=== PATIENT | male | born 1960 | race Caucasian/White ===

== ENCOUNTER → 2017-03-06 | Outpatient (CLI) | payer MEDICARE, MEDICAID | END | disposition home or self-care (01) | LOC: RADPV 09:41 | PROVIDERS: ATTEND Family Medicine | DX: M85.88 Other specified disorders of bone density and structure, other site (principal) | CPT/HCPCS: 77080 ==

== ENCOUNTER 2025-07-21 12:02 | Inpatient (IN) | payer MEDICARE, OTHER ==
[~2025-07-21] VITALS: Ht 170.2 cm; Wt 69.4 kg
[2025-07-21] MEDS: LevETIRAcetam 2,000 MG in DEXTROSE 5%-WATER 100 ML IV ONE (12:15)
[2025-07-21] MEDS: ACETAMINOPHEN 1000 MG/ISO-OSM 100 ML IV ONE (12:20)
[2025-07-21] MEDS: CefTRIAXone 1 GM/DEXTROSE 50 ML IV ONE (12:21)
[2025-07-21 12:29] LABS: PLATELET COUNT (AUTO) 232 K/uL (150-450); RED BLOOD CELL COUNT(AUTO) 4.16 MIL/uL (4.50-5.90); RED CELL DISTRIBUTION WIDTH 13.3 % (11.5-14.5); WHITE BLOOD COUNT (AUTO) 7.5 K/uL (4.5-11.0)
[2025-07-21 12:42] LABS: CALCIUM, TOTAL 8.8 mg/dL (8.8-10.5); CREATININE 0.42 mg/dL (0.60-1.30); GLOMERULAR FILTR. RATE CALC > 60 mL/min (>60); GLUCOSE,RANDOM 97 mg/dL (70-110); SODIUM SERUM 132 mmol/L (136-145); UREA NITROGEN, BLOOD 14 mg/dL (7-18)
[2025-07-21 12:43] LABS: ASPARTATE AMINOTRANSFERASE 80 U/L (15-37); TOTAL PROTEIN, SERUM 7.8 g/dL (6.4-8.2)
[2025-07-21 12:45] LABS: LACTIC ACID 1.7 mmol/L (0.4-2.0)
[2025-07-21] MEDS: SODIUM CHLORIDE 0.9% 2,150 ML IV ONE (12:47)
[2025-07-21 12:51] LABS: TROPONIN I-HIGH SENSITIVITY 4 ng/L (<76)
[2025-07-21 12:57] LABS: ABG BASE EXCESS 5.6 mmol/L (-2.0-3.0); ABG CARBOXYHEMOGLOBIN 1.1 % (0.5-1.5); ABG HCO3 28.9 mmol/L (21.0-28.0); ABG METHEMOGLOBIN 0.9 % (0.0-1.5); ABG OXYGEN CONTENT 17.3 mL/dL (15.0-23.0); ABG OXYGEN SATURATION 94.3 % (94.0-98.0); ABG OXYHEMOGLOBIN 92.4 % (94.0-98.0); ABG PCO2 47 mmHg (32.0-48.0); ABG PH 7.427 (7.350-7.450); ABG TOTAL HEMOGLOBIN 13.3 G/dL (13.5-17.5); FRACTIONATED INSPIRED OXYGEN 40.0 % (21-100.0); PO2, ARTERIAL BG 74.9 mmHg (83.0-108.0); SOURCE, BLOOD GAS ARTERIAL; TEMPERATURE, FAHRENHEIT, BG 101.7 FAHREN (96.0-98.6)
[2025-07-21 12:57] LABS: COVID AG,FIA SOURCE NASAL SWAB
[2025-07-21 12:58] LABS: ABG A-A DIFF O2 154.9 mmHg (10-20.0); ALLEN TEST, BLOOD GAS Positive; FLOW, BLOOD GAS 5.00 L/min (0.00-15.00); O2 DEVICE,BLOOD GAS CANNULA (ROOM AIR); PATIENT RATE, BG 16.0 min.; SITE, BLOOD GAS LFT RADIAL
[2025-07-21 13:33] LABS: SARS-COV2 (COVID) ANTIGEN,FIA Negative (Negative)
[2025-07-21 13:34] LABS: INFLUENZA TYPE A NEGATIVE FOR TYPE A (NEGATIVE)
[2025-07-21 13:36] LABS: INFLUENZA TYPE B POSITIVE FOR TYPE B (NEGATIVE)
[2025-07-21 14:14] LABS: APPEARANCE,URINE CLEAR (CLEAR); GLUCOSE, URINE (UA) NEGATIVE (NEGATIVE); LEUKOCYTE ESTERASE ,URINE SMALL (NEGATIVE); NITRATE,URINE POSITIVE (NEGATIVE); OCCULT BLOOD,URINE NEGATIVE (NEGATIVE); SPECIFIC GRAVITIY, URINE 1.010 (1.003-1.030)
[2025-07-21 14:37] LABS: SQUAMOUS EPITHELIAL CELL,UR Few /LPF (None Seen)
[2025-07-21] MEDS ORDERED: ALBUTEROL SULFATE 2.5 MG/0.5 ML NEB SOLUTION NEB PRN (15:00)
[2025-07-21] MEDS ORDERED: ONDANSETRON HCL 4 MG/2 ML VIAL IVP PRN (15:00)
[2025-07-21] MEDS ORDERED: IPRATROPIUM BROMIDE 0.5 MG/2.5 ML NEB SOLUTION NEB PRN (15:00)
[2025-07-21] MEDS: HEPARIN SODIUM,PORCINE 5,000 UNITS/ML VIAL SQ SCH (15:38)
[2025-07-21] MEDS: PIPERACILLIN/TAZO 3.375 GM/D5W 50 ML IV ONE (15:39)
[2025-07-21] MEDS: LACOSAMIDE 200 MG in DEXTROSE 5%-WATER 100 ML IV ONE (15:39)
[2025-07-21] MEDS: VANCOMYCIN 1.25 GM/WATER(PEG) 250 ML IV ONE (16:39)
[2025-07-21] MEDS: LORazepam 2 MG/ML VIAL IVP ONE (17:46)
[2025-07-21 18:59] VITALS: BP 143/104; PULSE 111; RESP 18; TEMP 100.2; O2SAT 97
[2025-07-21 20:25] VITALS: BP 157/99; PULSE 104; RESP 16; TEMP 99.7; O2SAT 98
[2025-07-21] MEDS: DOCUSATE SODIUM 100 MG CAPSULE PO SCH (21:00)
[2025-07-21] MEDS: DIAZEPAM 5 MG/ML 2 ML SYRINGE IVP ONE (22:17)
[2025-07-21] MEDS ORDERED: IOHEXOL 350 MG/ML 100 ML VIAL ONE (22:24)
[2025-07-21] MEDS: OSELTAMIVIR PHOSPHATE 75 MG CAPSULE PO SCH (22:45)
[2025-07-21] MEDS ORDERED: SODIUM CHLORIDE 0.9% 500 ML IV ONE (23:53)
[2025-07-21] MEDS: LevETIRAcetam 1,500 MG in DEXTROSE 5%-WATER 100 ML IV SCH (23:56)
[2025-07-22] VITALS (7 sets, daily range): BP systolic 131–161; BP diastolic 70–133; PULSE 83–108; RESP 18–20; TEMP 98.2–99.3; O2SAT 97–98
[2025-07-22] MEDS: PIPERACILLIN/TAZO 3.375 GM/D5W 50 ML IV SCH (00:27)
[2025-07-22] MEDS: RINGERS SOLUTION,LACTATED 1,000 ML IV SCH (01:09)
[2025-07-22] MEDS: BISACODYL 10 MG RECTAL RECTAL SUPPOSITORY PR ONE (01:09)
[2025-07-22 06:07] LABS: PLATELET COUNT (AUTO) 221 K/uL (150-450); RED BLOOD CELL COUNT(AUTO) 4.00 MIL/uL (4.50-5.90); RED CELL DISTRIBUTION WIDTH 13.3 % (11.5-14.5); WHITE BLOOD COUNT (AUTO) 6.4 K/uL (4.5-11.0)
[2025-07-22 06:19] LABS: CALCIUM, TOTAL 8.6 mg/dL (8.8-10.5); CREATININE 0.39 mg/dL (0.60-1.30); GLOMERULAR FILTR. RATE CALC > 60 mL/min (>60); GLUCOSE,RANDOM 99 mg/dL (70-110); SODIUM SERUM 133 mmol/L (136-145); UREA NITROGEN, BLOOD 9 mg/dL (7-18)
[2025-07-22] MEDS: LEVOTHYROXINE SODIUM 50 MCG TABLET GT SCH (06:23)
[2025-07-22] MEDS: VANCOMYCIN 1GM/WATER(PEG/NADA) 200 ML IV SCH (09:17)
[2025-07-22] MEDS: LACOSAMIDE 100 MG TABLET PO SCH (09:40)
[2025-07-22] MEDS: PANTOPRAZOLE SODIUM 40 MG/VIAL IVP SCH (09:40)
[2025-07-23] VITALS (7 sets, daily range): BP systolic 100–152; BP diastolic 54–107; PULSE 70–106; RESP 15–19; TEMP 98.1–99.3; O2SAT 94–98
[2025-07-23] MEDS: 0.9% SODIUM CHLORIDE 10 ML SYRINGE IVP PRN (00:09)
[2025-07-23 07:15] LABS: CALCIUM, TOTAL 8.4 mg/dL (8.8-10.5); CREATININE 0.49 mg/dL (0.60-1.30); GLOMERULAR FILTR. RATE CALC > 60 mL/min (>60); GLUCOSE,RANDOM 80 mg/dL (70-110); SODIUM SERUM 135 mmol/L (136-145); UREA NITROGEN, BLOOD 11 mg/dL (7-18)
[2025-07-23 08:18] LABS: PLATELET COUNT (AUTO) 216 K/uL (150-450); RED BLOOD CELL COUNT(AUTO) 3.72 MIL/uL (4.50-5.90); RED CELL DISTRIBUTION WIDTH 13.3 % (11.5-14.5); WHITE BLOOD COUNT (AUTO) 6.2 K/uL (4.5-11.0)
[2025-07-23] MEDS: POTASSIUM CHLORIDE 10% 40 MEQ/30 ML LIQUID UDCUP GT ONE (08:58)
[2025-07-24 03:24] VITALS: BP 147/81; PULSE 106; RESP 15; TEMP 98.4; O2SAT 97
[2025-07-24 06:35] LABS: PLATELET COUNT (AUTO) 233 K/uL (150-450); RED BLOOD CELL COUNT(AUTO) 3.89 MIL/uL (4.50-5.90); RED CELL DISTRIBUTION WIDTH 13.2 % (11.5-14.5); WHITE BLOOD COUNT (AUTO) 6.3 K/uL (4.5-11.0)
[2025-07-24 06:41] LABS: CALCIUM, TOTAL 8.5 mg/dL (8.8-10.5); CREATININE 0.53 mg/dL (0.60-1.30); GLOMERULAR FILTR. RATE CALC > 60 mL/min (>60); GLUCOSE,RANDOM 62 mg/dL (70-110); SODIUM SERUM 133 mmol/L (136-145); UREA NITROGEN, BLOOD 9 mg/dL (7-18)
[2025-07-24 08:12] VITALS: BP 139/85; PULSE 76; RESP 17; TEMP 97.7; O2SAT 97
[2025-07-24 11:48] VITALS: BP 146/88; PULSE 88; RESP 17; TEMP 97.9; O2SAT 95
[2025-07-24 16:57] VITALS: BP 135/91; PULSE 97; RESP 18; TEMP 98.4; O2SAT 97
[2025-07-24 20:27] VITALS: BP 150/88; PULSE 91; RESP 19; TEMP 97.9; O2SAT 95
[2025-07-24] MEDS ORDERED: SODIUM CHLORIDE 0.9% 500 ML IV ONE (23:05)
[2025-07-24 23:53] VITALS: BP 122/78; PULSE 80; RESP 17; TEMP 98.6; O2SAT 95
[2025-07-25] VITALS (7 sets, daily range): BP systolic 113–139; BP diastolic 59–90; PULSE 78–108; RESP 17–20; TEMP 97.3–100.6; O2SAT 97–100
[2025-07-25 00:39] LABS: COVID AG,FIA SOURCE NASAL SWAB
[2025-07-25 00:43] LABS: SARS-COV2 (COVID) ANTIGEN,FIA Negative (Negative)
[2025-07-25 06:11] LABS: PLATELET COUNT (AUTO) 228 K/uL (150-450); RED BLOOD CELL COUNT(AUTO) 3.81 MIL/uL (4.50-5.90); RED CELL DISTRIBUTION WIDTH 13.1 % (11.5-14.5); WHITE BLOOD COUNT (AUTO) 4.2 K/uL (4.5-11.0)
[2025-07-25 06:24] LABS: CALCIUM, TOTAL 8.7 mg/dL (8.8-10.5); CREATININE 0.57 mg/dL (0.60-1.30); GLOMERULAR FILTR. RATE CALC > 60 mL/min (>60); GLUCOSE,RANDOM 73 mg/dL (70-110); SODIUM SERUM 135 mmol/L (136-145); UREA NITROGEN, BLOOD 6 mg/dL (7-18)
[2025-07-25] MEDS: LACOSAMIDE 100 MG TABLET PO SCH (20:13)
[2025-07-25] MEDS: ACETAMINOPHEN 325 MG TABLET PO PRN (20:14)
[2025-07-26 04:42] VITALS: BP 121/73; PULSE 78; RESP 18; TEMP 97.8; O2SAT 96
[2025-07-26 06:59] LABS: CALCIUM, TOTAL 9.0 mg/dL (8.8-10.5); CREATININE 0.60 mg/dL (0.60-1.30); GLOMERULAR FILTR. RATE CALC > 60 mL/min (>60); GLUCOSE,RANDOM 87 mg/dL (70-110); SODIUM SERUM 137 mmol/L (136-145); UREA NITROGEN, BLOOD 11 mg/dL (7-18)
[2025-07-26 08:00] VITALS: BP 125/63; PULSE 70; RESP 19; TEMP 99.3; O2SAT 95
[2025-07-26] MEDS: POTASSIUM CHLORIDE 10% 40 MEQ/30 ML LIQUID UDCUP PO ONE (14:57)
[2025-07-26 16:00] VITALS: BP 135/81; PULSE 76; RESP 19; TEMP 98.1; O2SAT 98
[2025-07-26] MEDS ORDERED: SODIUM CHLORIDE 0.9% IRRIG ONE (16:06)
[2025-07-26 19:39] VITALS: BP 105/60; PULSE 98; RESP 18; TEMP 99.5; O2SAT 98
== END 2025-07-26 21:45 | DRG 871 ==
LOC: EMS 12:02 → EDH 14:54 → 5N 18:58 → 6S 07-25 17:14
PROVIDERS: ADMIT Internal Medicine; ATTEND Internal Medicine
DX: A41.9 Sepsis, unspecified organism (principal); G93.41 Metabolic encephalopathy; J15.9 Unspecified bacterial pneumonia; J10.08 Influenza due to other identified influenza virus with other specified pneumonia; J15.212 Pneumonia due to Methicillin resistant Staphylococcus aureus; G40.901 Epilepsy, unspecified, not intractable, with status epilepticus; Z66 Do not resuscitate; G80.9 Cerebral palsy, unspecified; Z20.822 Contact with and (suspected) exposure to COVID-19; R13.12 Dysphagia, oropharyngeal phase; L98.499 Non-pressure chronic ulcer of skin of other sites with unspecified severity; Z74.01 Bed confinement status
CPT/HCPCS: 51702; 70450; 71045; 74177; 80048; 80076; 80156; 80202; 81001; 82140; 82805; 83605; 83735; 83880; 84132; 84145; 84484; 85025; 85610; 87040; 87804; 92526; 92610; 93005; 95816; 99285; C9254; J0131; J0696; J0712; J1644; J2060; J2470; J2543; J7030; J7040; J7060; J7120; 36415-L1; 36415-TC